=== PATIENT | female | born 1980 | race Caucasian/White ===

== ENCOUNTER 2017-06-22 11:47 | Emergency (ER) | payer BC | END 2017-06-22 12:51 | disposition left against medical advice (07) | LOC: UCCORT 11:47 | DX: J11.1 Influenza due to unidentified influenza virus with other respiratory manifestations (principal); Z53.21 Procedure and treatment not carried out due to patient leaving prior to being seen by health care provider ==

== ENCOUNTER 2017-12-19 19:15 | Emergency (ER) | payer BC ==
[2017-12-19 19:38] VITALS: BP 135/95
--- NOTE | 2017-12-19 19:49 | ED ---
GI/ HPI - HPI Summary HPI Summary: 37 yr old with lower abdominal cramping, and multiple episodes of diarrhea since Wednesday. She states she went camping and to [place] this past [place]. No body else in her family is ill. She denies fever and chills. She has no other complaints. - History of Current Complaint Chief Complaint: [facility] Time Seen by Provider: 12/19/17 19:40 Stated Complaint: UPSET STOMACH Hx Last Menstrual Period: 11/27/17 Pain Intensity: 2 - Allergy/Home Medications Allergies/Adverse Reactions: Allergies Allergy/AdvReac Type Severity Reaction Status Date / Time MS Leuprolide [From Lupron] Allergy Intermediate Difficulty Verified 01/29/16 18 :23 Breathing MS Meperidine Allergy Intermediate Itching Verified 01/29/16 18:23 [From Demerol HCl] PMH/Surg Hx/FS Hx/Imm Hx Endocrine/Hematology History: Denies: Hx Diabetes Respiratory History: Denies: Hx Asthma - Surgical History Surgery Procedure, Year, and Place: Tonsillectomy, 1998, [place] Infectious Disease History: No Infectious Disease History: Denies: Traveled Outside the [place] in Last 30 Days - Family History Known Family History: Positive: None Negative: Hypertension, Diabetes, Respiratory Disease - Social History Occupation: Employed Full-time Lives: With Family Alcohol Use: Occasionally Substance Use Type: Reports: None Smoking Status (MU): Never Smoked Tobacco Review of Systems Constitutional: Negative Positive: Abdominal Pain, Diarrhea, Nausea All Other Systems Reviewed And Are Negative: Yes Physical Exam Triage Information Reviewed: Yes Vital Signs On Initial Exam: Initial Vitals Temp Pulse Resp BP Pulse Ox 99.0 F 89 16 135/95 100 12/19/17 19:34 12/19/17 19:34 12/19/17 19:34 12/19/17 19:34 12/19/17 19:34 Vital Signs Reviewed: Yes Appearance: Positive: Well-Appearing, No Pain Distress Skin: Positive: Warm, Skin Color Reflects Adequate Perfusion Head/Face: Positive: Normal Head/Face Inspection Eyes: Positive: EOMI ENT: Positive: Normal ENT inspection Neck: Positive: Nontender Respiratory/Lung Sounds: Positive: Clear to Auscultation, Breath Sounds Present Cardiovascular: Positive: RRR. Negative: Murmur Abdomen Description: Positive: Other: - mild low abdominal tenderness Musculoskeletal: Positive: Strength/ROM Intact Neurological: Positive: Sensory/Motor Intact, Alert, Oriented to Person Place, Time, CN Intact II-III Psychiatric: Positive: Normal - [place] Coma Scale Best Eye Response: 4 - Spontaneous Best Motor Response: 6 - Obeys Commands Best Verbal Response: 5 - Oriented Coma Scale Total: 15 Diagnostics - Vital Signs Vital Signs Temp Pulse Resp BP Pulse Ox 12/19/17 19:34 99.0 F 89 16 135/95 100 - Laboratory Lab Statement: Any lab studies that have been ordered have been reviewed, and results considered in the medical decision making process. GIGU Course/Dx - Course Course Of Treatment: 37 yr old with diarrhea of three days and low abd cramps. She iwll go to the ER for labs and further eval. - Diagnoses Provider Diagnoses: Diarrhea, Hypertension Discharge - Sign-Out/Discharge Documenting (check all that apply): Patient Departure - Discharge Plan Condition: Good Disposition: HOME-RECOMMEND TO ED Patient Education Materials: Gastroenteritis (ED), Hypertension (ED) Referrals: Colette Luna MD [Primary Care Provider] - Additional Instructions: you should go to the ER for further work up and evaluation after leaving here. - Billing Disposition and Condition Condition: GOOD Disposition: Home-Recommend to ED
== END 2017-12-19 19:51 | disposition home health service (06) ==
LOC: UCCORT 19:15
DX: R19.7 Diarrhea, unspecified (principal); I10 Essential (primary) hypertension; R10.30 Lower abdominal pain, unspecified; R11.0 Nausea; Z88.8 Allergy status to other drugs, medicaments and biological substances
CPT/HCPCS: 99212; G0463